=== PATIENT | male | born 1985 | race Caucasian/White ===

== ENCOUNTER 2018-12-25 09:26 | Emergency (ER) | payer OTHER ==
[~2018-12-25] VITALS: Ht 165.1 cm; Wt 93.0 kg
[2018-12-25] MEDS ORDERED: MOBIC15 MG PO (11:58)
[2018-12-25] MEDS ORDERED: BACTRIM DS TAB1 EACH PO (11:58)
[2018-12-25 12:28] VITALS: BP 141/74
== END 2018-12-25 12:29 | disposition home or self-care (01) ==
LOC: ER 09:26
DX: L73.2 Hidradenitis suppurativa (principal); F17.210 Nicotine dependence, cigarettes, uncomplicated